=== PATIENT | female | born 1970 | race Caucasian/White ===

== ENCOUNTER 2018-07-08 08:02 | Inpatient (IN) | payer OTHER ==
[~2018-07-08] VITALS: Ht 165.1 cm; Wt 83.9 kg
[2018-07-08 08:00] VITALS: BP 112/52
[2018-07-08 08:24] LABS: Basophils # (auto) 0 uL; Basophils % (auto) 0.2 % (0.0-2.0); Eosinophils # (auto) 0.1 uL; Eosinophils % (auto) 0.4 % (0.0-7.0); Hemoglobin 10.5 g/dL (12.2-16.2); Lymphocytes # (auto) 1.8 uL; Lymphocytes % (auto) 8.6 % (10.0-50.0); Mean Corpuscular Hemoglobin 27.6 pg (28.0-32.0); Mean Corpuscular Hgb Conc. 31.6 g/dL (32.0-36.0); Mean Corpuscular Volume 87.2 fL (80.0-100.0); Monocytes # (auto) 0.9 uL; Monocytes % (auto) 4.1 % (0.0-12.0); Neutrophils # (auto) 18.3 uL; Neutrophils % (auto) 86.7 % (37.0-80.0); Platelet Count (auto) 312 10^3/uL (140-450); Red Blood Cells 3.79 10^6/uL (4.0-5.20); Red Cell Distribution Width 17.3 % (11.8-14.3); White Blood Cell 21.1 10^3/uL (4.4-10.8)
[2018-07-08 08:44] LABS: INR 1.01 (0.9-1.15); Prothrombin Time 10.8 sec (9.27-12.13)
[2018-07-08] MEDS ORDERED: AZITHROMYCIN 500MG/ 250ML 250 ML IV ONE (08:45)
[2018-07-08] MEDS ORDERED: cefTRIAXone 1GM/50ML D5W 50 ML IV ONE (08:45)
[2018-07-08 08:47] LABS: Albumin 2.7 g/dL (3.4-5.0); Anion Gap 8 (5-15); BUN/Creatinine Ratio 14.3; Blood Urea Nitrogen 15 mg/dL (7-18); Calcium 8.2 mg/dL (8.5-10.1); Carbon Dioxide 23 mmol/L (21-32); Chloride 103 mmol/L (98-107); GFR African American 72 mL/min; GFR Non-African American 59 mL/min; Glucose 94 mg/dL (74-106); Magnesium 2.4 mg/dL (1.6-2.6); Potassium 3.6 mmol/L (3.5-5.1); Sodium 134 mmol/L (136-145)
[2018-07-08 08:57] LABS: Alanine Aminotransferase 40 U/L (13-56); Alkaline Phosphatase 107 U/L (45-117); Aspartate Aminotransferase 83 U/L (15-37); Bilirubin, Total 0.4 mg/dL (0.2-1.0); Total Protein 7.1 g/dL (6.4-8.2)
[2018-07-08] MEDS ORDERED: ALBUTEROL SULF 2.5 MG/0.5ML(0.5%) NEB SOLN NEB ONE (09:00)
[2018-07-08] MEDS ORDERED: IPRATROPIUM BROM 0.5 MG/2.5ML INH SOL NEB ONE (09:00)
[2018-07-08] MEDS ORDERED: methylPREDNISolone SOD SUCC 125 MG/2 ML VL IV ONE (09:00)
[2018-07-08] MEDS ORDERED: IOHEXOL 350 MG/ML 100ML IJ ONE (09:40)
[2018-07-08 10:21] VITALS: BP 109/53
[2018-07-08] MEDS ORDERED: ACETAMINOPHEN 325 MG TAB PO ONE (10:45)
[2018-07-08] MEDS ORDERED: PIPERACILLIN-TAZOB 3.375GM 100 ML IV ONE ×2 (11:51→12:00)
[2018-07-08] MEDS ORDERED: NITROGLYCERIN 0.4 MG SL TAB SL PRN (12:00)
[2018-07-08] MEDS ORDERED: ALBUTEROL SULF 2.5 MG/0.5ML(0.5%) NEB SOLN NEB PRN (12:00)
[2018-07-08] MEDS ORDERED: OSELTAMIVIR 75 MG CAP PO ONE (12:00)
[2018-07-08] MEDS ORDERED: TEMAZEPAM 15 MG CAP PO PRN (12:00)
[2018-07-08] MEDS ORDERED: VANCOMYCIN 1GM/250ML 250 ML IV ONE ×2 (12:00→12:04)
[2018-07-08] MEDS ORDERED: ACYCLOVIR 5MG/KG Q8HR PER RX 0 ML IV SCH (12:00)
[2018-07-08] MEDS ORDERED: VANCOMYCIN PER PHARMACY 0 MG IV SCH (12:00)
[2018-07-08] MEDS ORDERED: MORPHINE SULFATE 4 MG/ML SYR/VIAL IV PRN (12:00)
[2018-07-08] MEDS ORDERED: LACTULOSE 20Gm/30ML SOLN PO PRN (12:00)
[2018-07-08] MEDS ORDERED: ACETAMINOPHEN 500 MG TAB PO PRN (12:00)
[2018-07-08] MEDS: SODIUM CHLORIDE 0.9% 1,000 ML IV SCH (12:17)
[2018-07-08] MEDS: IPRATROPIUM BROM 0.5 MG/2.5ML INH SOL NEB SCH ×3 (12:20→23:57)
[2018-07-08] MEDS: ALBUTEROL SULF 2.5 MG/0.5ML(0.5%) NEB SOLN NEB SCH ×3 (12:20→23:57)
[2018-07-08] MEDS: FLUCONAZOLE 200MG/100ML 100 ML IV SCH ×2 (13:28→14:48)
[2018-07-08] MEDS: methylPREDNISolone SOD SUCC 40 MG/ML VL IV SCH ×2 (13:28→18:40)
[2018-07-08 14:22] VITALS: BP 93/55
--- NOTE | 2018-07-08 14:30 | NUR ---
Respiratory note: OFF BIPAP AT THIS TIME TO 3 L NC. PATIENT TOLERATING NC WELL WITH NO ADVERSE EFFECTS. INFORMED MARTINE FLOOD OF CHANGES. HR 85 SPO2 94%, RR 18, B/S EXP WHEEZE, DIMINISHED IN THE BASES, WILL CONTINUE TO ASSESS PATIENT T/O DAY.
[2018-07-08 14:38] VITALS: BP 93/55
[2018-07-08] MEDS: D5W 5% IV SCH ×2 (15:45→23:30)
[2018-07-08] MEDS: ACYCLOVIR SOD IV SCH ×2 (15:45→23:30)
[2018-07-08] MEDS: HYDROcodone-ACET 5/325MG TAB PO PRN ×2 (17:09→23:25)
[2018-07-08] MEDS: PIPERACILLIN-TAZOB 3.375GM 100 ML IV SCH (18:40)
[2018-07-08] MEDS: MORPHINE SULFATE 4 MG/ML SYR/VIAL IV PRN ×3 (18:40→21:43)
[2018-07-08] MEDS: PROMETHAZINE HCL 25 MG/ML 1ML IV PRN (18:40)
[2018-07-08] MEDS: OSELTAMIVIR 75 MG CAP PO SCH (23:00)
[2018-07-08] MEDS ORDERED: ACYCLOVIR SODIUM (50 MG/ ML) 10 ML VIAL IV ONE (23:34)
[2018-07-08 23:35] VITALS: BP 98/63
[2018-07-09] MEDS: PIPERACILLIN-TAZOB 3.375GM 100 ML IV SCH ×4 (00:17→18:30)
[2018-07-09] MEDS: methylPREDNISolone SOD SUCC 40 MG/ML VL IV SCH ×4 (00:24→18:30)
[2018-07-09] MEDS ORDERED: QUEtiapine FUMARATE 100 MG TAB PO ONE (01:30)
[2018-07-09] MEDS: SODIUM CHLORIDE 0.9% 1,000 ML IV SCH ×2 (01:35→15:00)
[2018-07-09] MEDS: VANCOMYCIN 1GM/250ML 250 ML IV SCH ×2 (02:13→16:15)
[2018-07-09] MEDS: HYDROcodone-ACET 5/325MG TAB PO PRN ×2 (06:11→13:37)
[2018-07-09] MEDS: IPRATROPIUM BROM 0.5 MG/2.5ML INH SOL NEB SCH ×3 (06:49→17:50)
[2018-07-09] MEDS: ALBUTEROL SULF 2.5 MG/0.5ML(0.5%) NEB SOLN NEB SCH ×3 (06:49→17:50)
[2018-07-09 06:50] VITALS: BP 113/66
[2018-07-09] MEDS: ACYCLOVIR SOD IV SCH ×3 (07:00→23:02)
[2018-07-09] MEDS: D5W 5% IV SCH ×3 (07:00→23:02)
[2018-07-09 07:38] LABS: Basophils # (auto) 0 uL; Basophils % (auto) 0.1 % (0.0-2.0); Eosinophils # (auto) 0 uL; Hematocrit 29.7 % (36.0-46.0); Hemoglobin 9.3 g/dL (12.2-16.2); Lymphocytes # (auto) 0.5 uL; Lymphocytes % (auto) 2.3 % (10.0-50.0); Mean Corpuscular Hemoglobin 27.2 pg (28.0-32.0); Mean Corpuscular Hgb Conc. 31.5 g/dL (32.0-36.0); Mean Corpuscular Volume 86.5 fL (80.0-100.0); Monocytes # (auto) 0.4 uL; Neutrophils # (auto) 19.4 uL; Neutrophils % (auto) 95.6 % (37.0-80.0); Nucleated Red Blood Cells % 0.1 %; Platelet Count (auto) 323 10^3/uL (140-450); Red Blood Cells 3.43 10^6/uL (4.0-5.20); Red Cell Distribution Width 17.2 % (11.8-14.3); White Blood Cell 20.3 10^3/uL (4.4-10.8)
[2018-07-09] MEDS: AZITHROMYCIN 500MG/ 250ML 250 ML IV SCH (08:00)
[2018-07-09 08:08] LABS: Albumin 2.3 g/dL (3.4-5.0); Calcium 7.8 mg/dL (8.5-10.1); Potassium 3.2 mmol/L (3.5-5.1)
[2018-07-09 08:15] LABS: BUN/Creatinine Ratio 22.2; Bilirubin, Total 0.3 mg/dL (0.2-1.0); Total Protein 6.4 g/dL (6.4-8.2)
[2018-07-09] MEDS: FLUCONAZOLE 200MG/100ML 100 ML IV SCH ×2 (10:08→11:16)
[2018-07-09] MEDS: ENOXAPARIN SOD 40 MG/0.4 ML SYRINGE SC SCH (10:09)
[2018-07-09] MEDS: PANTOPRAZOLE 40 MG TAB PO SCH (10:09)
[2018-07-09] MEDS: OSELTAMIVIR 75 MG CAP PO SCH ×2 (10:09→22:04)
--- NOTE | 2018-07-09 11:42 | NUR ---
WOUND CARE NOTE: Wound care in to see patient per wound care request regarding wounds that are noted present on admission. [place] nurse took photograph of patient's wounds upon admission for reference. Patient is 47 y/o male with admitting diagnosis of Pneumonia, Sepsis. Patient is resting in ER bed #2. Patient is awake, alert and able to verbalize needs. Patient is in no stated pain at this time. She's able to assist in turning and repositioning. Her current Kashif score is 18. Noted patient's anterior abdomen has multi dry intact scabs and scars. There's one open full thickness wound to her L lower anterior abdomen measuring [id number]. Wound bed is red with granulation tissue, with yellow slough, pink lucian wound, minimal serous drainage, no odor noted. Patient states that she has had the abdominal wound since December "it just opened up, due to infection". Patient denies any abdominal surgery. Cleansed patient's Lt.lower abdominal wound with wound cleanser, patted dry with sterile gauze, applied Thera honey gel at wound base,packed wound cavity with NS moistened plain packing strips, covered wound with layers of folded sterile 4x4's gauze, and secured with paper tape. Patient turned to her L side, sacral, back and heels are examined, no other wound noted, no pressure injury related issue noted. Patient tolerated well. RECOMMENDATION: Daily/PRN dressing change to lower abdominal wound per MD order, dietary consult due to presence of wound, redistribute pressure points with pillows, continue monitoring by wound care while patient is hospitalized. Addendum: 07/09/18 at 1533 by Meggan Mcgregor RN Amended: Links added.
[2018-07-09] MEDS: LORazepam 0.5 MG TAB PO PRN (13:37)
[2018-07-09] MEDS: MORPHINE SULFATE 4 MG/ML SYR/VIAL IV PRN (20:38)
[2018-07-09] MEDS ORDERED: POTASSIUM CHL 20 Meq TABLET PO ONE (21:30)
[2018-07-09] MEDS ORDERED: QUEtiapine FUMARATE 100 MG TAB ONE ×2 (22:20→22:23)
[2018-07-09] MEDS ORDERED: QUEtiapine FUMARATE 25 MG TAB ONE (22:23)
[2018-07-09] MEDS: QUEtiapine FUMARATE 100 MG TAB PO SCH (23:02)
[2018-07-10 02:40] VITALS: BP 106/65
[2018-07-10] MEDS: SODIUM CHLORIDE 0.9% 1,000 ML IV SCH ×2 (03:56→17:20)
[2018-07-10 04:30] VITALS: BP 116/70
[2018-07-10] MEDS: MORPHINE SULFATE 4 MG/ML SYR/VIAL IV PRN ×4 (05:35→22:10)
[2018-07-10] MEDS: ALBUTEROL SULF 2.5 MG/0.5ML(0.5%) NEB SOLN NEB SCH ×4 (05:55→19:06)
[2018-07-10] MEDS: IPRATROPIUM BROM 0.5 MG/2.5ML INH SOL NEB SCH ×4 (05:55→19:06)
--- NOTE | 2018-07-10 05:55 | NUR ---
Respiratory note: PT TAKEN OFF BIPAP TO 8L OXYMIZER. HR 76, RR 26, POX 97%. BREATH SOUNDS EXPIRATORY WHEEZING, NO RESPIRATORY DISTRESS NOTED AT THIS TIME. MEDNEB TX GIVEN, TOLERATED WELL. PT IS RESTING COMFORTABLY IN BED. WILL CONTINUE TO MONITOR.
[2018-07-10] MEDS: VANCOMYCIN 1GM/250ML 250 ML IV SCH (06:19)
[2018-07-10] MEDS: PIPERACILLIN-TAZOB 3.375GM 100 ML IV SCH ×4 (06:19→17:36)
[2018-07-10] MEDS: methylPREDNISolone SOD SUCC 40 MG/ML VL IV SCH ×4 (06:19→17:36)
[2018-07-10] MEDS: ACYCLOVIR SOD IV SCH ×3 (07:06→23:13)
[2018-07-10] MEDS: D5W 5% IV SCH ×3 (07:06→23:13)
[2018-07-10 07:29] LABS: Basophils # (auto) 0 uL; Eosinophils # (auto) 0 uL; Hematocrit 29.9 % (36.0-46.0); Hemoglobin 9.5 g/dL (12.2-16.2); Lymphocytes # (auto) 0.8 uL; Lymphocytes % (auto) 4.3 % (10.0-50.0); Mean Corpuscular Hemoglobin 27.5 pg (28.0-32.0); Mean Corpuscular Hgb Conc. 31.7 g/dL (32.0-36.0); Mean Corpuscular Volume 86.8 fL (80.0-100.0); Monocytes # (auto) 0.2 uL; Monocytes % (auto) 1.3 % (0.0-12.0); Neutrophils # (auto) 16.5 uL; Neutrophils % (auto) 94.4 % (37.0-80.0); Nucleated Red Blood Cells % 0.1 %; Platelet Count (auto) 326 10^3/uL (140-450); Red Blood Cells 3.45 10^6/uL (4.0-5.20); Red Cell Distribution Width 17.2 % (11.8-14.3); White Blood Cell 17.5 10^3/uL (4.4-10.8)
[2018-07-10 07:43] LABS: Albumin 2.2 g/dL (3.4-5.0); BUN/Creatinine Ratio 19.6; Calcium 7.2 mg/dL (8.5-10.1); Potassium 3.4 mmol/L (3.5-5.1)
[2018-07-10 07:46] LABS: Bilirubin, Total 0.2 mg/dL (0.2-1.0); Total Protein 6.3 g/dL (6.4-8.2)
[2018-07-10] MEDS: AZITHROMYCIN 500MG/ 250ML 250 ML IV SCH (07:58)
[2018-07-10] MEDS: PANTOPRAZOLE 40 MG TAB PO SCH (09:35)
[2018-07-10] MEDS: ENOXAPARIN SOD 40 MG/0.4 ML SYRINGE SC SCH (09:35)
[2018-07-10] MEDS: OSELTAMIVIR 75 MG CAP PO SCH ×2 (09:35→22:10)
[2018-07-10] MEDS: FLUCONAZOLE 200MG/100ML 100 ML IV SCH ×2 (09:36→11:06)
[2018-07-10] MEDS: PROMETHAZINE HCL 25 MG/ML 1ML IV PRN ×2 (12:36→17:36)
--- NOTE | 2018-07-10 15:06 | NUR ---
BRANDING MACHINE OPERATOR DR. Lizandro MARINELLI
[2018-07-10] MEDS: HYDROcodone-ACET 5/325MG TAB PO PRN (20:13)
[2018-07-10] MEDS: QUEtiapine FUMARATE 100 MG TAB PO SCH (22:25)
[2018-07-10 22:38] VITALS: BP 136/75
--- NOTE | 2018-07-10 22:38 | NUR ---
Respiratory note: DISREGARD RESPIRATORY NEBULIZER CHARTING AT 2238. DOCUMENTED THE INCORRECT TIME.
[2018-07-11] MEDS: methylPREDNISolone SOD SUCC 40 MG/ML VL IV SCH ×4 (00:22→18:07)
[2018-07-11 00:34] VITALS: BP 136/75
[2018-07-11] MEDS: LORazepam 0.5 MG TAB PO PRN ×2 (00:36→18:59)
[2018-07-11] MEDS: MORPHINE SULFATE 4 MG/ML SYR/VIAL IV PRN ×3 (02:20→11:27)
--- NOTE | 2018-07-11 03:59 | NUR ---
PT TAKEN OFF BIPAP PER REQUEST. PT PLACED BACK ON OXYMIZER AT 6 LPM. HR 81 RR 20 POX 99%.
[2018-07-11] MEDS ORDERED: VANCOMYCIN 1GM/250ML 250 ML IV SCH (06:00)
[2018-07-11] MEDS: PIPERACILLIN-TAZOB 3.375GM 100 ML IV SCH ×4 (06:01→18:07)
[2018-07-11 06:31] LABS: Basophils # (auto) 0 uL; Eosinophils # (auto) 0 uL; Hematocrit 29.4 % (36.0-46.0); Hemoglobin 9.5 g/dL (12.2-16.2); Lymphocytes # (auto) 0.5 uL; Mean Corpuscular Hgb Conc. 32.3 g/dL (32.0-36.0); Mean Corpuscular Volume 86.8 fL (80.0-100.0); Monocytes # (auto) 0.4 uL; Monocytes % (auto) 2.7 % (0.0-12.0); Neutrophils # (auto) 15.1 uL; Neutrophils % (auto) 94.3 % (37.0-80.0); Nucleated Red Blood Cells % 0.2 %; Platelet Count (auto) 332 10^3/uL (140-450); Red Blood Cells 3.39 10^6/uL (4.0-5.20); Red Cell Distribution Width 16.9 % (11.8-14.3)
[2018-07-11 06:46] LABS: Albumin 2.3 g/dL (3.4-5.0); BUN/Creatinine Ratio 14.3; Calcium 7.3 mg/dL (8.5-10.1); Potassium 3.5 mmol/L (3.5-5.1)
[2018-07-11 06:49] LABS: Bilirubin, Total 0.2 mg/dL (0.2-1.0); Total Protein 6.3 g/dL (6.4-8.2)
[2018-07-11] MEDS: SODIUM CHLORIDE 0.9% 1,000 ML IV SCH (06:52)
[2018-07-11] MEDS: D5W 5% IV SCH ×2 (06:52→16:00)
[2018-07-11] MEDS: ACYCLOVIR SOD IV SCH ×2 (06:52→16:00)
[2018-07-11] MEDS: ALBUTEROL SULF 2.5 MG/0.5ML(0.5%) NEB SOLN NEB SCH ×3 (07:25→17:40)
[2018-07-11] MEDS: IPRATROPIUM BROM 0.5 MG/2.5ML INH SOL NEB SCH ×3 (07:25→17:40)
[2018-07-11] MEDS: AZITHROMYCIN 500MG/ 250ML 250 ML IV SCH (08:12)
[2018-07-11] MEDS: FLUCONAZOLE 200MG/100ML 100 ML IV SCH ×2 (10:30→11:55)
--- NOTE | 2018-07-11 10:51 | NUR ---
I spoke with [facility] Camera Systems Engineer Thu [phone], faxed her updated clinical information as requested-I spoke with ER nurse Yasmine-she is going to ask MD if patient is stable for transfer to [facility].
[2018-07-11] MEDS: PANTOPRAZOLE 40 MG TAB PO SCH (10:59)
[2018-07-11] MEDS: ENOXAPARIN SOD 40 MG/0.4 ML SYRINGE SC SCH (10:59)
[2018-07-11] MEDS: OSELTAMIVIR 75 MG CAP PO SCH (10:59)
--- NOTE | 2018-07-11 11:00 | NUR ---
CHAPERONED DR. MARINELLI INTO PTS ROOM
[2018-07-11] MEDS ORDERED: METHOCARBAMOL 500 MG TAB PO SCH (11:30)
[2018-07-11] MEDS ORDERED: GABAPENTIN 300 MG CAP PO ONE (11:30)
--- NOTE | 2018-07-11 11:40 | NUR ---
Transfer order faxed to [facility].
[2018-07-11] MEDS ORDERED: METHOCARBAMOL 500 MG TAB PO ONE (11:45)
--- NOTE | 2018-07-11 13:16 | NUR ---
I spoke with [facility] [employer] Machine Helper Thu, she is aware of the transfer order to [facility] and will work on a bed assignment.
[2018-07-11 18:54] VITALS: BP 144/74
[2018-07-11] MEDS: HYDROcodone-ACET 5/325MG TAB PO PRN (18:59)
== END 2018-07-11 18:59 | disposition short-term general hospital (02) | DRG 871 ==
LOC: EDBD 08:02 → ER 08:02 → TELE 11:56
PROVIDERS: ADMIT Internal Medicine; ATTEND Family Medicine
PROC: 5A09357 Assistance with Respiratory Ventilation, Less than 24 Consecutive Hours, Continuous Positive Airway Pressure (ICD-10-PCS; principal; 2018-07-08)
PROC: 5A09357 Assistance with Respiratory Ventilation, Less than 24 Consecutive Hours, Continuous Positive Airway Pressure (ICD-10-PCS; 2018-07-09)
PROC: 5A09357 Assistance with Respiratory Ventilation, Less than 24 Consecutive Hours, Continuous Positive Airway Pressure (ICD-10-PCS; 2018-07-10)
PROC: 5A09357 Assistance with Respiratory Ventilation, Less than 24 Consecutive Hours, Continuous Positive Airway Pressure (ICD-10-PCS; 2018-07-11)
DX: A41.9 Sepsis, unspecified organism (principal); R65.21 Severe sepsis with septic shock; J96.20 Acute and chronic respiratory failure, unspecified whether with hypoxia or hypercapnia; J18.1 Lobar pneumonia, unspecified organism; J10.00 Influenza due to other identified influenza virus with unspecified type of pneumonia; G93.41 Metabolic encephalopathy; J45.901 Unspecified asthma with (acute) exacerbation; M79.7 Fibromyalgia; G43.909 Migraine, unspecified, not intractable, without status migrainosus; F32.9 Major depressive disorder, single episode, unspecified; F41.9 Anxiety disorder, unspecified; M06.9 Rheumatoid arthritis, unspecified; B02.9 Zoster without complications; Z98.84 Bariatric surgery status; Z88.2 Allergy status to sulfonamides
CPT/HCPCS: 36415; 36600; 70450; 71045; 71260; 74177; 80053; 80061; 80202; 82140; 82805; 82962; 83605; 83735; 83880; 84484; 84702; 85025; 85610; 85730; 87040; 87077; 87186; 87205; 87804; 93005; 94640; 94660; 96365; 96367; 99291; G0378; J0696; J1450; J2543; J7060

== ENCOUNTER 2020-02-27 05:13 | Emergency (ER) | payer OTHER ==
[~2020-02-27] VITALS: Ht 165.1 cm; Wt 81.6 kg
[2020-02-27 06:26] LABS: Urine Bacteria NONE SEEN /hpf (None Seen); Urine Blood Negative /uL (Negative); Urine Hyaline Cast FEW /lpf (0 - 2); Urine Mucus FEW (None Seen); Urine Specific Gravity 1.012 (1.001-1.035); Urine WBC 3 /hpf (0 - 5)
[2020-02-27 06:52] LABS: Alcohol, Urine < 3.0 mg/dL (0-10); Amphetamine Screen, Urine NEGATIVE (NEGATIVE); Barbiturate Scree,Urine NEGATIVE (NEGATIVE); Benzodiazephine Screen, Urine NEGATIVE (NEGATIVE); Cannabinoid Screen, Urine NEGATIVE (NEGATIVE); Opiate Scree,Urine POSITIVE (NEGATIVE); Phencyclidine Screen, Urine NEGATIVE (NEGATIVE)
[2020-02-27 07:00] LABS: Cocaine Screen, Urine NEGATIVE (NEGATIVE)
[2020-02-27 08:04] LABS: Basophils # (auto) 0 10 ^3/uL (0-0.2); Basophils % (auto) 0.9 % (0.0-2.0); Eosinophils # (auto) 0.1 10 ^3/uL (0-0.8); Eosinophils % (auto) 3.5 % (0.0-7.0); Hematocrit 34.9 % (36.0-46.0); Hemoglobin 11.5 g/dL (12.2-16.2); Lymphocytes # (auto) 1.4 10 ^3/uL (0.4-5.4); Lymphocytes % (auto) 34.8 % (10.0-50.0); Mean Corpuscular Hemoglobin 32.2 pg (28.0-32.0); Mean Corpuscular Volume 97.5 fL (80.0-100.0); Monocytes # (auto) 0.4 10 ^3/uL (0-1.3); Monocytes % (auto) 10.3 % (0.0-12.0); Neutrophils # (auto) 2.1 10 ^3/uL (1.6-8.6); Neutrophils % (auto) 50.5 % (37.0-80.0); Platelet Count (auto) 169 10^3/uL (140-450); Red Blood Cells 3.58 10^6/uL (4.0-5.20); Red Cell Distribution Width 18.7 % (11.8-14.3); White Blood Cell 4.1 10^3/uL (4.4-10.8)
[2020-02-27 08:20] LABS: Acetaminophen 6.7 ug/mL (10-30)
[2020-02-27 08:21] LABS: Albumin 3.3 g/dL (3.4-5.0); Calcium 8.5 mg/dL (8.5-10.1)
[2020-02-27 08:25] LABS: BUN/Creatinine Ratio 21.5; Bilirubin, Total 0.3 mg/dL (0.2-1.0); Total Protein 6.1 g/dL (6.4-8.2)
[2020-02-27] MEDS ORDERED: SODIUM CHLORIDE 0.9% 500 ML IV ONE (12:45)
[2020-02-27 14:04] VITALS: BP 103/50
== END 2020-02-27 15:24 | disposition left against medical advice (07) ==
LOC: EDBD 05:13 → ER 05:13
DX: T40.2X1A Poisoning by other opioids, accidental (unintentional), initial encounter (principal); G93.41 Metabolic encephalopathy; E46 Unspecified protein-calorie malnutrition; Z88.2 Allergy status to sulfonamides; Z88.5 Allergy status to narcotic agent; Y92.89 Other specified places as the place of occurrence of the external cause
CPT/HCPCS: 36415; 70450; 80053; 80307; 80329; 81001; 82962; 85025; 96360; 99285; J7030

== ENCOUNTER 2022-08-08 17:01 | Emergency (ER) | payer OTHER ==
[~2022-08-08] VITALS: Ht 162.6 cm; Wt 73.0 kg
[2022-08-08] MEDS ORDERED: HYDROcodone-ACET 5/325MG TAB PO ONE (20:30)
[2022-08-08] MEDS ORDERED: MORPHINE SULFATE 4 MG/ML SYR/VIAL IV ONE (21:30)
[2022-08-08] MEDS ORDERED: SODIUM CHLORIDE 0.9% 1,000 ML IV ONE (21:30)
[2022-08-08] MEDS ORDERED: ONDANSETRON HCL 4 MG/2 ML VIAL IV ONE (21:30)
[2022-08-08 21:58] LABS: Basophils # (auto) 0.1 10 ^3/uL (0-0.2); Basophils % (auto) 0.4 % (0.0-2.0); Eosinophils # (auto) 0.1 10 ^3/uL (0-0.8); Eosinophils % (auto) 0.5 % (0.0-7.0); Hematocrit 32.1 % (36.0-46.0); Hemoglobin 10.5 g/dL (12.2-16.2); Lymphocytes # (auto) 2.6 10 ^3/uL (0.4-5.4); Lymphocytes % (auto) 14.5 % (10.0-50.0); Mean Corpuscular Hemoglobin 30.9 pg (28.0-32.0); Mean Corpuscular Hgb Conc. 32.8 g/dL (32.0-36.0); Mean Corpuscular Volume 94.2 fL (80.0-100.0); Monocytes # (auto) 0.8 10 ^3/uL (0-1.3); Monocytes % (auto) 4.4 % (0.0-12.0); Neutrophils # (auto) 14.2 10 ^3/uL (1.6-8.6); Neutrophils % (auto) 80.2 % (37.0-80.0); Red Blood Cells 3.41 10^6/uL (4.0-5.20); Red Cell Distribution Width 18.5 % (11.8-14.3); White Blood Cell 17.7 10^3/uL (4.4-10.8)
[2022-08-08 22:14] LABS: Albumin 2.7 g/dL (3.4-5.0); Calcium 8.1 mg/dL (8.5-10.1); INR 0.99 (0.9-1.15); Partial Thromboplastin Time 26.2 sec (24.6-33.4); Potassium 3.7 mmol/L (3.5-5.1)
[2022-08-08 22:18] LABS: BUN/Creatinine Ratio 18.3 (10.0-20.0); Bilirubin, Total 0.3 mg/dL (0.2-1.0); Total Protein 6.1 g/dL (6.4-8.2)
[2022-08-09 00:11] LABS: Urine Bacteria FEW /hpf (None Seen); Urine Blood Negative /uL (Negative); Urine Hyaline Cast FEW /lpf (0 - 2); Urine Specific Gravity 1.011 (1.001-1.035); Urine WBC 1 /hpf (0 - 5)
[2022-08-09] MEDS ORDERED: fentaNYL CITRATE 100 MCG/2 ML VL IV ONE ×3 (00:45→04:45)
[2022-08-09] MEDS ORDERED: cefTRIAXone 1GM/50ML D5W 50 ML IV ONE (02:15)
[2022-08-09] MEDS ORDERED: AZITHROMYCIN 500MG/ 250ML 250 ML IV ONE (02:15)
[2022-08-09 08:03] VITALS: BP 137/78
[2022-08-09] MEDS ORDERED: HYDROmorphone HCL 2 MG/ML VL/or syr IV ONE (09:00)
== END 2022-08-09 08:19 | disposition short-term general hospital (02) ==
LOC: EDBD 17:01 → ER 17:01
DX: S82.51XA Displaced fracture of medial malleolus of right tibia, initial encounter for closed fracture (principal); S82.491A Other fracture of shaft of right fibula, initial encounter for closed fracture; M19.90 Unspecified osteoarthritis, unspecified site; Z88.2 Allergy status to sulfonamides; Z88.8 Allergy status to other drugs, medicaments and biological substances; Z20.822 Contact with and (suspected) exposure to COVID-19; W01.0XXA Fall on same level from slipping, tripping and stumbling without subsequent striking against object, initial encounter; Y93.89 Activity, other specified; Y92.89 Other specified places as the place of occurrence of the external cause; Y99.8 Other external cause status
CPT/HCPCS: 29515; 36415; 71045; 73590; 80053; 81001; 83880; 85025; 85610; 85730; 87426; 87804; 93005; 96361; 96365; 96366; 96375; 96376; 99285; J0456; J0696; J1170; J2270; J2405; J3010; J7030

== ENCOUNTER 2023-04-19 11:30 | Inpatient (IN) | payer OTHER ==
[~2023-04-19] VITALS: Ht 157.5 cm; Wt 74.5 kg
[2023-04-19] MEDS ORDERED: cefTRIAXone 1GM/50ML D5W 50 ML IV ONE (12:00)
[2023-04-19] MEDS ORDERED: VANCOMYCIN 1GM/200ML 250 ML IV ONE (12:00)
[2023-04-19] MEDS ORDERED: SODIUM CHLORIDE 0.9% 1,000 ML IVB ONE (12:00)
[2023-04-19] MEDS ORDERED: SODIUM CHLORIDE 0.9% 1,000 ML IV ONE (12:00)
[2023-04-19] MEDS ORDERED: NOREPINEPHRINE 8 MG/250ML KIT 250 ML IV SCH (12:00)
[2023-04-19] MEDS ORDERED: NOREPINEPHRINE 8 MG/250ML KIT 250 ML IV ONE (12:00)
[2023-04-19 12:14] LABS: Basophils # (auto) 0.1 10 ^3/uL (0-0.2); Eosinophils # (auto) 0.2 10 ^3/uL (0-0.8); Hemoglobin 10.9 g/dL (12.2-16.2); Mean Corpuscular Volume 80.3 fL (80.0-100.0); Monocytes # (auto) 0.6 10 ^3/uL (0-1.3)
[2023-04-19 12:15] LABS: Basophils % (auto) 0.5 % (0.0-2.0); Hematocrit 35.9 % (36.0-46.0); Lymphocytes # (auto) 3.2 10 ^3/uL (0.4-5.4); Lymphocytes % (auto) 29.9 % (10.0-50.0); Mean Corpuscular Hemoglobin 24.3 pg (28.0-32.0); Mean Corpuscular Hgb Conc. 30.3 g/dL (32.0-36.0); Neutrophils # (auto) 6.5 10 ^3/uL (1.6-8.6); Neutrophils % (auto) 61.6 % (37.0-80.0); Red Blood Cells 4.47 10^6/uL (4.0-5.20); Red Cell Distribution Width 18.4 % (11.8-14.3); White Blood Cell 10.5 10^3/uL (4.4-10.8)
[2023-04-19 12:31] LABS: Alanine Aminotransferase 20 U/L (7-40); Albumin 4.2 g/dL (3.2-4.8); Alkaline Phosphatase 159 U/L (46-116); Anion Gap 9 (5-15); Aspartate Aminotransferase 32 U/L (13-40); BUN/Creatinine Ratio 12.3 (10.0-20.0); Bilirubin, Total 0.2 mg/dL (0.2-1.0); Blood Alcohol < 3.0 mg/dL (<10); Blood Urea Nitrogen 13 mg/dL (9-23); Calcium 9.3 mg/dL (8.5-10.1); Carbon Dioxide 24 mmol/L (20-30); Chloride 106 mmol/L (98-107); Glucose 121 mg/dL (74-106); Potassium 3.7 mmol/L (3.5-5.1); Sodium 139 mmol/L (136-145); Total Protein 6.6 g/dL (5.7-8.2)
[2023-04-19 12:34] LABS: Lipase 106 U/L (12-53)
[2023-04-19 12:45] VITALS: PULSE 54; RESP 12; O2SAT 100
[2023-04-19 12:49] LABS: Lactic Acid w/Reflex 2.8 mmol/L (0.4-2.0)
[2023-04-19] MEDS ORDERED: SODIUM CHLORIDE 0.9% 500 ML IV ONE (14:15)
[2023-04-19 15:00] LABS: Urine Bacteria FEW /hpf (None Seen); Urine Blood TRACE /uL (Negative); Urine Clarity Clear (Clear); Urine Color Colorless (Yellow); Urine Hyaline Cast FEW /lpf (0 - 2); Urine Mucus FEW (None Seen); Urine Protein, UAD 1+ (Negative); Urine Specific Gravity 1.014 (1.001-1.035); Urine Urobilinogen Normal (Negative); Urine WBC 1 /hpf (0 - 5)
[2023-04-19 15:06] LABS: Amphetamine Screen, Urine Neg (NEGATIVE); Barbiturate Scree,Urine Neg (NEGATIVE); Benzodiazephine Screen, Urine Neg (NEGATIVE)
[2023-04-19 15:07] LABS: Cannabinoid Screen, Urine Neg (NEGATIVE); Phencyclidine Screen, Urine Neg (NEGATIVE)
[2023-04-19 15:11] LABS: Cocaine Screen, Urine Neg (NEGATIVE)
[2023-04-19 15:20] VITALS: PULSE 53; RESP 14; O2SAT 98
[2023-04-19 15:51] LABS: Base Excess -3.6 mmol/L (-2.0-2.0)
[2023-04-19] MEDS ORDERED: NALOXONE HCL 1MG/ML 2ML SYRINGE IV ONE ×3 (16:00→17:45)
[2023-04-19] MEDS ORDERED: NITROGLYCERIN 0.4 MG SL TAB SL PRN (16:00)
[2023-04-19] MEDS ORDERED: VANCOMYCIN PER PHARMACY 0 MG IV SCH (16:00)
[2023-04-19] MEDS ORDERED: DEXTROSE (50%) 50ML SYRG IV PRN (16:00)
[2023-04-19] MEDS ORDERED: NALOXONE HCL 1MG/ML 2ML SYRINGE ONE (16:51)
[2023-04-19 17:46] VITALS: O2SAT 98
[2023-04-19] MEDS: ACCU-CHEK COMFORT CURVE STRIP VI SCH ×2 (18:19→23:00)
[2023-04-19 18:22] LABS: COVID19 ANTIGEN SOFIA FIA NEGATIVE (NEGATIVE)
[2023-04-19] MEDS: SODIUM CHLORIDE 0.9% 1,000 ML IV SCH (18:26)
[2023-04-19] MEDS: CEFEPIME 2GM/50ML NS 50 ML IV SCH (18:26)
[2023-04-19 18:43] LABS: Opiate Scree,Urine Pos (NEGATIVE)
[2023-04-19 19:20] VITALS: PULSE 72; RESP 18; O2SAT 98
[2023-04-19 19:24] VITALS: BP 124/48; PULSE 61; RESP 16; TEMP 97.9; O2SAT 98
[2023-04-19] MEDS: ONDANSETRON HCL 4 MG/2 ML VIAL IV PRN (19:51)
[2023-04-19 20:11] LABS: Potassium 4.2 mmol/L (3.5-5.1); Sodium 144 mmol/L (136-145)
[2023-04-19 20:12] LABS: Anion Gap 5 (5-15); Calcium 8.3 mg/dL (8.7-10.4); Carbon Dioxide 23 mmol/L (20-30); Chloride 116 mmol/L (98-107)
[2023-04-19 20:17] LABS: Glucose 157 mg/dL (74-106)
[2023-04-19 20:18] LABS: BUN/Creatinine Ratio 16.4 (10.0-20.0); Blood Urea Nitrogen 12 mg/dL (9-23)
[2023-04-19 20:22] LABS: INR 0.97 (0.9-1.15); Partial Thromboplastin Time 24.2 SEC (24.5-34.5); Prothrombin Time 10.2 sec (9.3-11.8)
[2023-04-20] VITALS (11 sets, daily range): BP systolic 107–136; BP diastolic 49–61; PULSE 59–78; RESP 17–22; TEMP 98.2–98.6; O2SAT 2–99
[2023-04-20] MEDS: SODIUM CHLORIDE 0.9% 1,000 ML IV SCH ×3 (00:15→13:10)
[2023-04-20 01:00] LABS: Chloride 115 mmol/L (98-107); Sodium 144 mmol/L (136-145)
[2023-04-20 01:01] LABS: Anion Gap 4 (5-15); Carbon Dioxide 25 mmol/L (20-30)
[2023-04-20 01:02] LABS: Calcium 8.5 mg/dL (8.7-10.4)
[2023-04-20 01:07] LABS: BUN/Creatinine Ratio 16.1 (10.0-20.0); Blood Urea Nitrogen 10 mg/dL (9-23); Glucose 137 mg/dL (74-106)
[2023-04-20] MEDS: VANCOMYCIN 1GM/200ML 250 ML IV SCH ×2 (02:28→16:02)
[2023-04-20] MEDS: ACCU-CHEK COMFORT CURVE STRIP VI SCH ×5 (02:41→22:58)
[2023-04-20] MEDS: IPRATROPIUM BROM 0.5 MG/2.5ML INH SOL NEB PRN (03:19)
[2023-04-20] MEDS: ALBUTEROL SULF 2.5 MG/0.5ML(0.5%) NEB SOLN NEB PRN (03:19)
[2023-04-20] MEDS: CEFEPIME 2GM/50ML NS 50 ML IV SCH ×3 (03:38→18:11)
[2023-04-20 06:22] LABS: Basophils # (auto) 0 10 ^3/uL (0-0.2); Eosinophils # (auto) 0 10 ^3/uL (0-0.8); Hemoglobin 9.5 g/dL (12.2-16.2); Lymphocytes # (auto) 1.6 10 ^3/uL (0.4-5.4); Monocytes # (auto) 0.6 10 ^3/uL (0-1.3); Nucleated Red Blood Cells % 0.1 %
[2023-04-20 06:24] LABS: Basophils % (auto) 0.3 % (0.0-2.0); Hematocrit 30.7 % (36.0-46.0); Lymphocytes % (auto) 15.5 % (10.0-50.0); Mean Corpuscular Hemoglobin 24.6 pg (28.0-32.0); Mean Corpuscular Hgb Conc. 31.1 g/dL (32.0-36.0); Mean Corpuscular Volume 79.2 fL (80.0-100.0); Monocytes % (auto) 5.6 % (0.0-12.0); Neutrophils # (auto) 8.1 10 ^3/uL (1.6-8.6); Neutrophils % (auto) 78.6 % (37.0-80.0); Red Blood Cells 3.87 10^6/uL (4.0-5.20); Red Cell Distribution Width 18.6 % (11.8-14.3); White Blood Cell 10.3 10^3/uL (4.4-10.8)
[2023-04-20 06:33] LABS: % Iron Saturation 4.5 % (15-50); Free T3 2.48 pg/mL (2.3-4.2); Free T4 (Free Thyroxine) 0.68 ng/dL (0.89-1.76)
[2023-04-20 06:35] LABS: Alanine Aminotransferase 13 U/L (7-40); Albumin 3.8 g/dL (3.2-4.8); Alkaline Phosphatase 142 U/L (46-116); Anion Gap 6 (5-15); Aspartate Aminotransferase 23 U/L (13-40); BUN/Creatinine Ratio 13.8 (10.0-20.0); Blood Urea Nitrogen 8 mg/dL (9-23); Calcium 8.7 mg/dL (8.5-10.1); Carbon Dioxide 25 mmol/L (20-30); Chloride 113 mmol/L (98-107); Glucose 111 mg/dL (74-106); Potassium 3.7 mmol/L (3.5-5.1); Sodium 144 mmol/L (136-145)
[2023-04-20 06:36] LABS: Bilirubin, Total 0.2 mg/dL (0.2-1.0)
[2023-04-20] MEDS ORDERED: ACCU-CHEK COMFORT CURVE STRIP VI SCH (08:30)
[2023-04-20] MEDS: PANTOPRAZOLE 40 MG/10 ML VIAL INJ IV SCH (09:17)
[2023-04-20] MEDS: ONDANSETRON HCL 4 MG/2 ML VIAL IV PRN (11:32)
[2023-04-20] MEDS ORDERED: ACCU-CHEK COMFORT CURVE STRIP VI PRN (12:00)
[2023-04-20] MEDS ORDERED: ACETAMINOPHEN 500 MG TAB PO ONE (12:45)
[2023-04-20] MEDS ORDERED: PRED1PAK7 PO (12:49)
[2023-04-20] MEDS ORDERED: BENZ100C97 PO (12:50)
[2023-04-20] MEDS ORDERED: PANT1INJ3 PO (12:50)
[2023-04-20] MEDS ORDERED: ESCI1TAB37 PO (12:50)
[2023-04-20] MEDS ORDERED: METH-1182 PO (12:50)
[2023-04-20 13:11] LABS: Chloride 111 mmol/L (98-107); Potassium 3.5 mmol/L (3.5-5.1); Sodium 144 mmol/L (136-145)
[2023-04-20 13:12] LABS: Anion Gap 6 (5-15); Carbon Dioxide 27 mmol/L (20-30)
[2023-04-20 13:13] LABS: Calcium 8.8 mg/dL (8.5-10.1)
[2023-04-20 13:17] LABS: Glucose 133 mg/dL (74-106)
[2023-04-20 13:18] LABS: BUN/Creatinine Ratio 11.3 (10.0-20.0); Blood Urea Nitrogen 7 mg/dL (9-23)
[2023-04-21] VITALS (9 sets, daily range): BP systolic 109–137; BP diastolic 61–77; PULSE 60–91; RESP 16–22; TEMP 36.7; O2SAT 95–99
[2023-04-21] MEDS: SODIUM CHLORIDE 0.9% 1,000 ML IV SCH ×4 (00:15→20:30)
[2023-04-21] MEDS: ACCU-CHEK COMFORT CURVE STRIP VI SCH ×6 (00:30→20:30)
[2023-04-21] MEDS: CEFEPIME 2GM/50ML NS 50 ML IV SCH (02:56)
[2023-04-21] MEDS: VANCOMYCIN 1GM/200ML 250 ML IV SCH ×3 (05:28→21:14)
[2023-04-21 07:00] LABS: Basophils # (auto) 0 10 ^3/uL (0-0.2); Eosinophils # (auto) 0 10 ^3/uL (0-0.8); Eosinophils % (auto) 0.4 % (0.0-7.0); Hemoglobin 8.6 g/dL (12.2-16.2); Lymphocytes # (auto) 1.5 10 ^3/uL (0.4-5.4); Mean Corpuscular Volume 80.1 fL (80.0-100.0); Neutrophils % (auto) 78.4 % (37.0-80.0); Red Cell Distribution Width 18.2 % (11.8-14.3)
[2023-04-21 07:02] LABS: Basophils % (auto) 0.2 % (0.0-2.0); Hematocrit 27.4 % (36.0-46.0); Lymphocytes % (auto) 14.5 % (10.0-50.0); Mean Corpuscular Hemoglobin 25.2 pg (28.0-32.0); Mean Corpuscular Hgb Conc. 31.4 g/dL (32.0-36.0); Monocytes # (auto) 0.7 10 ^3/uL (0-1.3); Monocytes % (auto) 6.5 % (0.0-12.0); Neutrophils # (auto) 8.1 10 ^3/uL (1.6-8.6); Red Blood Cells 3.42 10^6/uL (4.0-5.20); White Blood Cell 10.4 10^3/uL (4.4-10.8)
[2023-04-21 07:09] LABS: Alanine Aminotransferase 13 U/L (7-40); Albumin 3.7 g/dL (3.2-4.8); Alkaline Phosphatase 125 U/L (46-116); Aspartate Aminotransferase 22 U/L (13-40); Calcium 8.4 mg/dL (8.7-10.4); Carbon Dioxide 28 mmol/L (20-30); Chloride 108 mmol/L (98-107)
[2023-04-21 07:10] LABS: Anion Gap 6 (5-15); BUN/Creatinine Ratio 10.9 (10.0-20.0); Bilirubin, Total 0.2 mg/dL (0.2-1.0); Blood Urea Nitrogen < 5 mg/dL (9-23); Creatine Kinase IFCC 118 U/L (34-145); Glucose 96 mg/dL (74-106); Potassium 2.9 mmol/L (3.5-5.1); Sodium 142 mmol/L (136-145); Total Protein 5.7 g/dL (5.7-8.2)
[2023-04-21] MEDS: PANTOPRAZOLE 40 MG/10 ML VIAL INJ IV SCH (08:52)
[2023-04-21] MEDS ORDERED: MORPHINE SULFATE INJ 2 MG/ml SYRG IV PRN (10:30)
[2023-04-21] MEDS ORDERED: POTASSIUM CHLORIDE 60 MEQ, LIDOCAINE 1% (LOCAL ANESTH.) 6 ML in SODIUM CHL 0.9% 500 ML IV ONE (10:30)
[2023-04-21] MEDS ORDERED: SODIUM FERR GLUC 62.5MG/5ML 125 MG in SODIUM CHL 0.9% 100 ML IV ONE (10:30)
[2023-04-21] MEDS: MORPHINE SULFATE INJ 2 MG/ml SYRG IV PRN (10:32)
[2023-04-21] MEDS: metroNIDAZOLE 500MG/100ML 100 ML IV SCH ×3 (14:00→22:55)
[2023-04-21] MEDS: HYDROcodone-ACET 5/325MG TAB PO PRN ×2 (15:33→22:10)
[2023-04-21] MEDS ORDERED: RIZA10TA22 PO (16:33)
[2023-04-21] MEDS: IPRATROPIUM BROM 0.5 MG/2.5ML INH SOL NEB PRN (19:49)
[2023-04-21] MEDS: ALBUTEROL SULF 2.5 MG/0.5ML(0.5%) NEB SOLN NEB PRN (19:50)
[2023-04-21] MEDS: SUMAtriptan SUCCINATE 6 MG/0.5 ML VL SC PRN (20:31)
[2023-04-22] VITALS (8 sets, daily range): BP systolic 123–166; BP diastolic 78–84; PULSE 54–85; RESP 16–20; TEMP 97.6–98.6; O2SAT 93–99
[2023-04-22] MEDS: ACCU-CHEK COMFORT CURVE STRIP VI SCH ×6 (00:59→22:14)
[2023-04-22] MEDS: HYDROcodone-ACET 5/325MG TAB PO PRN ×2 (03:42→13:29)
[2023-04-22] MEDS ORDERED: GABA250S7 PO (05:06)
[2023-04-22] MEDS ORDERED: SUCR1SUS5 PO (05:06)
[2023-04-22] MEDS: metroNIDAZOLE 500MG/100ML 100 ML IV SCH ×3 (06:00→22:00)
[2023-04-22] MEDS: SODIUM CHLORIDE 0.9% 1,000 ML IV SCH ×3 (06:30→23:35)
[2023-04-22] MEDS: VANCOMYCIN 1GM/200ML 250 ML IV SCH ×3 (06:30→22:12)
[2023-04-22 07:19] LABS: Anion Gap 7 (5-15); Carbon Dioxide 29 mmol/L (20-30); Chloride 105 mmol/L (98-107); Potassium 2.9 mmol/L (3.5-5.1); Sodium 141 mmol/L (136-145)
[2023-04-22 07:20] LABS: Calcium 8.6 mg/dL (8.7-10.4)
[2023-04-22 07:25] LABS: Glucose 91 mg/dL (74-106)
[2023-04-22 07:30] LABS: BUN/Creatinine Ratio 10.9 (10.0-20.0); Basophils # (auto) 0 10 ^3/uL (0-0.2); Basophils % (auto) 0.6 % (0.0-2.0); Blood Urea Nitrogen < 5 mg/dL (9-23); Eosinophils # (auto) 0.1 10 ^3/uL (0-0.8); Hemoglobin 8.5 g/dL (12.2-16.2); Monocytes # (auto) 0.8 10 ^3/uL (0-1.3)
[2023-04-22 07:33] LABS: Eosinophils % (auto) 0.6 % (0.0-7.0); Hematocrit 26.9 % (36.0-46.0); Lymphocytes # (auto) 1.8 10 ^3/uL (0.4-5.4); Lymphocytes % (auto) 21.5 % (10.0-50.0); Mean Corpuscular Hemoglobin 24.9 pg (28.0-32.0); Mean Corpuscular Hgb Conc. 31.7 g/dL (32.0-36.0); Mean Corpuscular Volume 78.8 fL (80.0-100.0); Monocytes % (auto) 9.1 % (0.0-12.0); Neutrophils # (auto) 5.7 10 ^3/uL (1.6-8.6); Neutrophils % (auto) 68.2 % (37.0-80.0); Nucleated Red Blood Cells % 0.1 %; Red Blood Cells 3.41 10^6/uL (4.0-5.20); Red Cell Distribution Width 18.2 % (11.8-14.3); White Blood Cell 8.3 10^3/uL (4.4-10.8)
[2023-04-22] MEDS: GABAPENTIN 100 MG CAP PO SCH (07:41)
[2023-04-22] MEDS: PANTOPRAZOLE 40 MG/10 ML VIAL INJ IV SCH (09:55)
[2023-04-22] MEDS: levoFLOXacin 500MG 100 ML IV SCH (09:56)
[2023-04-22] MEDS ORDERED: DEXTROSE (50%) 50ML SYRG IV PRN (10:15)
[2023-04-22] MEDS ORDERED: POTASSIUM CHL 20 Meq TABLET PO ONE (10:15)
[2023-04-22] MEDS ORDERED: POTASSIUM CHLORIDE 40 MEQ, LIDOCAINE 1% (LOCAL ANESTH.) 4 ML in SODIUM CHL 0.9% 250 ML IV ONE (10:15)
[2023-04-22] MEDS: InsuLIN REG 1unit/0.01ml Soln (100units/ml) SC SCH ×3 (11:30→22:00)
[2023-04-22] MEDS: MORPHINE SULFATE INJ 2 MG/ml SYRG IV PRN (17:28)
[2023-04-22] MEDS ORDERED: GABAPENTIN 100 MG CAP PO SCH (22:00)
[2023-04-23] VITALS (7 sets, daily range): BP systolic 111–135; BP diastolic 61–81; PULSE 75–98; RESP 16–20; TEMP 98–98.4; O2SAT 93–99
[2023-04-23] MEDS: metroNIDAZOLE 500MG/100ML 100 ML IV SCH (05:05)
[2023-04-23] MEDS: VANCOMYCIN 1GM/200ML 250 ML IV SCH ×2 (05:48→06:48)
[2023-04-23] MEDS: MORPHINE SULFATE INJ 2 MG/ml SYRG IV PRN (05:48)
[2023-04-23] MEDS: GABAPENTIN 100 MG CAP PO SCH (06:17)
[2023-04-23] MEDS: InsuLIN REG 1unit/0.01ml Soln (100units/ml) SC SCH ×3 (07:00→17:00)
[2023-04-23] MEDS ORDERED: hydrALAZINE HCL 20 MG/ML VL IV PRN (07:30)
[2023-04-23] MEDS: ACCU-CHEK COMFORT CURVE STRIP VI SCH ×3 (07:58→17:00)
[2023-04-23] MEDS ORDERED: PANTOPRAZOLE 40 MG TAB PO SCH (10:00)
[2023-04-23] MEDS: levoFLOXacin 500MG 100 ML IV SCH (10:06)
[2023-04-23] MEDS: SUMAtriptan SUCCINATE 6 MG/0.5 ML VL SC PRN (10:30)
[2023-04-23 11:27] LABS: Chloride 107 mmol/L (98-107); Potassium 3.2 mmol/L (3.5-5.1); Sodium 144 mmol/L (136-145)
[2023-04-23 11:28] LABS: Anion Gap 5 (5-15); Carbon Dioxide 32 mmol/L (20-30)
[2023-04-23 11:29] LABS: Calcium 9.4 mg/dL (8.5-10.1)
[2023-04-23 11:33] LABS: Glucose 96 mg/dL (74-106)
[2023-04-23 11:34] LABS: Blood Urea Nitrogen 6 mg/dL (9-23)
[2023-04-23] MEDS ORDERED: POTASSIUM CHL 20 Meq TABLET PO ONE ×2 (12:45→13:21)
[2023-04-23] MEDS ORDERED: metroNIDAZOLE 500 MG TAB PO SCH (14:00)
[2023-04-23] MEDS: HYDROcodone-ACET 5/325MG TAB PO PRN (14:15)
[2023-04-23] MEDS ORDERED: MET500T PO (15:15)
[2023-04-23] MEDS ORDERED: LEVO500T91 PO (15:15)
[2023-04-23] MEDS ORDERED: VANCOMYCIN 1GM/200ML 250 ML IV SCH (22:00)
[2023-04-24 11:06] LABS: Vitamin B1, Whole Blood 119.4 nmol/L (66.5-200.0)
== END 2023-04-23 17:00 | disposition home or self-care (01) | DRG 871 ==
LOC: EDBD 11:30 → ER 11:30 → TELE 16:13 → TELE-CENTR 04-20 11:07
PROVIDERS: ADMIT Nurse Practitioner Family; ATTEND Internal Medicine
DX: A41.9 Sepsis, unspecified organism (principal); G92.8 Other toxic encephalopathy; J96.01 Acute respiratory failure with hypoxia; J96.02 Acute respiratory failure with hypercapnia; N17.0 Acute kidney failure with tubular necrosis; E87.29 Other acidosis; G40.209 Localization-related (focal) (partial) symptomatic epilepsy and epileptic syndromes with complex partial seizures, not intractable, without status epilepticus; R65.20 Severe sepsis without septic shock; D50.9 Iron deficiency anemia, unspecified; G89.4 Chronic pain syndrome; I12.9 Hypertensive chronic kidney disease with stage 1 through stage 4 chronic kidney disease, or unspecified chronic kidney disease; Z20.822 Contact with and (suspected) exposure to COVID-19; M19.90 Unspecified osteoarthritis, unspecified site; E87.6 Hypokalemia; F31.9 Bipolar disorder, unspecified; F17.200 Nicotine dependence, unspecified, uncomplicated; G43.909 Migraine, unspecified, not intractable, without status migrainosus; K52.9 Noninfective gastroenteritis and colitis, unspecified; N18.9 Chronic kidney disease, unspecified; Z88.2 Allergy status to sulfonamides; Z88.8 Allergy status to other drugs, medicaments and biological substances; Z83.3 Family history of diabetes mellitus; Z98.84 Bariatric surgery status
CPT/HCPCS: 36415; 36600; 70450; 70551; 71045; 74176; 80048; 80053; 80202; 80307; 80320; 81001; 82140; 82550; 82805; 82962; 83540; 83550; 83605; 83690; 83735; 84425; 84439; 84443; 84481; 84484; 85025; 85048; 85610; 85730; 86850; 86900; 86901; 87040; 87045; 87086; 87177; 87426; 87427; 87493; 93005; 93306; 94640; 95819; 96361; 96365; 96368; 97110; 97116; 97163; 99291; C9113; G0378; J0692; J0696; J1956; J2001; J2405; J3490

== ENCOUNTER 2023-05-18 20:46 | Emergency (ER) | payer OTHER ==
[~2023-05-18] VITALS: Ht 165.1 cm; Wt 77.3 kg
[~2023-05-18 20:46] MED LIST: BENZ100C97 PO; ESCI1TAB37 PO; GABA250S7 PO; LEVO500T91 PO; MET500T PO; METH-1182 PO; PANT1INJ3 PO; PRED1PAK7 PO; RIZA10TA22 PO; SUCR1SUS5 PO
[2023-05-18] MEDS ORDERED: MORPHINE SULFATE 4 MG/ML SYR/VIAL IV ONE (22:00)
[2023-05-18] MEDS ORDERED: ONDANSETRON HCL 4 MG/2 ML VIAL IV ONE (22:00)
[2023-05-18 23:08] LABS: Alkaline Phosphatase 172 U/L (46-116); Anion Gap 2 (5-15); Aspartate Aminotransferase 15 U/L (13-40); BUN/Creatinine Ratio 13.5 (10.0-20.0); Bilirubin, Total < 0.2 mg/dL (0.2-1.0); Blood Urea Nitrogen 13 mg/dL (9-23); Calcium 8.7 mg/dL (8.7-10.4); Carbon Dioxide 29 mmol/L (20-30); Chloride 108 mmol/L (98-107); Glucose 93 mg/dL (74-106); Lipase 43 U/L (12-53); Potassium 3.9 mmol/L (3.5-5.1); Sodium 139 mmol/L (136-145); Total Protein 6.5 g/dL (5.7-8.2)
[2023-05-18 23:20] LABS: Alanine Aminotransferase < 9 U/L (7-40)
[2023-05-18 23:55] LABS: Basophils # (auto) 0 10 ^3/uL (0-0.2); Hemoglobin 10.2 g/dL (12.2-16.2); Neutrophils # (auto) 2.2 10 ^3/uL (1.6-8.6); Nucleated Red Blood Cells % 0.1 %; Red Blood Cells 3.81 10^6/uL (4.0-5.20)
[2023-05-18 23:57] LABS: Basophils % (auto) 0.6 % (0.0-2.0); Eosinophils # (auto) 0.2 10 ^3/uL (0-0.8); Eosinophils % (auto) 2.7 % (0.0-7.0); Lymphocytes # (auto) 3.4 10 ^3/uL (0.4-5.4); Lymphocytes % (auto) 54.7 % (10.0-50.0); Mean Corpuscular Hemoglobin 26.9 pg (28.0-32.0); Mean Corpuscular Hgb Conc. 31.1 g/dL (32.0-36.0); Mean Corpuscular Volume 86.5 fL (80.0-100.0); Monocytes # (auto) 0.5 10 ^3/uL (0-1.3); Monocytes % (auto) 7.5 % (0.0-12.0); Neutrophils % (auto) 34.5 % (37.0-80.0); White Blood Cell 6.3 10^3/uL (4.4-10.8)
[2023-05-18 23:58] LABS: Red Cell Distribution Width 23.4 % (11.8-14.3)
[2023-05-19] MEDS ORDERED: MAALOX PLUS or MAALOX 30 ML PO ONE
[2023-05-19] MEDS ORDERED: ONDANSETRON ODT 4 MG TAB PO ONE
[2023-05-19] MEDS ORDERED: LIDOCAINE VISCOUS 2% 15ML UD MT ONE
[2023-05-19] MEDS ORDERED: MORPHINE SULFATE 4 MG/ML SYR/VIAL IM ONE
[2023-05-19] MEDS ORDERED: DICY10CA PO (00:17)
[2023-05-19 00:23] VITALS: TEMP 98.2; O2SAT 98
[2023-05-19 00:31] VITALS: BP 119/46; PULSE 78; RESP 17
== END 2023-05-19 00:37 | disposition home or self-care (01) ==
LOC: ER 20:46 → EDBD 20:46 → EDUNIT# 20:46 → ER 05-19 00:37
DX: K29.00 Acute gastritis without bleeding (principal); M19.90 Unspecified osteoarthritis, unspecified site; N18.9 Chronic kidney disease, unspecified; I95.9 Hypotension, unspecified; Z88.8 Allergy status to other drugs, medicaments and biological substances; Z79.899 Other long term (current) drug therapy
CPT/HCPCS: 36415; 76705; 80053; 83690; 85025; 93005; 96372; 99285; J2270; Q0162

== ENCOUNTER 2024-10-22 11:08 | Inpatient (IN) | payer OTHER ==
[~2024-10-22] VITALS: Ht 154.9 cm; Wt 66.1 kg
[~2024-10-22 11:08] MED LIST changes: +DICY10CA PO
[2024-10-22] MEDS: SODIUM CHLORIDE 0.9% 1,000 ML IV ONE (11:15)
--- NOTE | 2024-10-22 11:16 | ED.PDOC ---
Altered Mental Status HPI Comments 53 y.o female with PMHx of a CVA and hypoglycemia, presents to the ED via EMS for an evaluation of a near syncopal episode today at a diner restaurant. EMS reports patient was eating breakfast, per bystanders witnessed patient become faint and called 911. On scene, patient was hypotensive in the 60-70's systolic, was given 300mL NS IV and push dose epi but pressure remained in the 70's systolic. Patient denies any chest pain, SOB, nausea, vomiting, headaches, fever, chills, or recent illness. Patient is on home oxygen at night but denies any respiratory illnesses. Time Seen by MD: 11:05 Primary Care Provider: CONNORO Reviewed Notes: Nurses Notes, Air Press Operator Notes, Medications, Allergies Allergies: Coded Allergies: Metronidazole (Verified Allergy, Mild, 04/22/23) Ceftriaxone (Verified Allergy, Unknown, 04/20/23) NSAIDs (Verified Allergy, Unknown, 04/19/23) Sulfa Antibiotics (Verified Allergy, Unknown, 04/19/23) Home Meds Active Scripts Dicyclomine Hcl (BENTYL CAPSULE) 10 Mg Cp, 1 CAP PO TID PRN, #30 CAP 11 Refills Prov:CHRIS BROWNING 05/19/23 Metronidazole (Metronidazole) 500 Mg Tab, 500 MG PO TID for 5 Days, #15 TAB Prov:DIPTI BILLY MD 04/23/23 Levofloxacin Hemihydrate (LEVAQUIN 500 MG) 500 Mg Tab, 500 MG PO DAILY for 5 Days, #5 TAB Prov:DIPTI BILLY MD 04/23/23 Reported Medications Sucralfate (Carafate) 1 Gm/10 Ml Opal, 1 GM PO QID, ML 04/22/23 Gabapentin (GABAPENTIN) 250 Mg/5 Ml Harriet, 300 MG PO TID, ML 04/22/23 Rizatriptan Benzoate (RIZATRIPTAN BENZOATE) 10 Mg Tab, 10 MG PO PRN for FOR HEADACHE 04/21/23 Escitalopram Oxalate (ESCITALOPRAM OXALATE) 20 Mg Tab, 1 TAB PO DAILY, #30 TAB 5 Refills 04/20/23 Methocarbamol (Methocarbamol) 750 Mg Tab, 750 MG PO for 30 Days, MG 04/20/23 Pantoprazole Sodium (PANTOPRAZOLE SODIUM) 40 Mg Inj, 40 MG PO, INJ 04/20/23 Benzonatate (Benzonatate) 100 Mg Cap, 100 MG PO, CAP 04/20/23 Prednisone (Prednisone) 5 Mg Bang, 5 MG PO, PACK 04/20/23 Information Source: Patient, Emergency Med Personnel Mode of Arrival: EMS Severity: Moderate Timing: Hours Duration: Since onset Prehospital treatment: 12 Lead EKG, Process Description Writer, IVF, Treatment (push dose epi ) Recent: None History of: Hypoglycemia Associated Signs and Symptoms: Other Past Medical History PAST MEDICAL HISTORY: Arthritis, CKF, CVA, Hypotension Surgical History: Appendectomy, Hysterectomy, 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 History: Unknown, Unobtainable, Pt Confused Family History Family History: Unknown, Unobtainable, Pt Confused Social History Smoker: Non-Smoker Alcohol: Denies ETOH Use Drugs: Other Lives In: Home Constitutional: denies: chills, diaphoresis, fatigue, fever, malaise, sweats, weakness, others EENTM: denies: blurred vision, double vision, ear bleeding, ear discharge, ear drainage, ear pain, ear ringing, eye pain, eye redness, hearing loss, mouth pain, mouth swelling, nasal discharge, nose bleeding, nose congestion, nose pain, photophobia, tearing, throat pain, throat swelling, voice changes, others Respiratory: denies: cough, hemoptysis, orthopnea, SOB at rest, shortness of breath, SOB with excertion, stridor, wheezing, others Cardiovascular: denies: chest pain, dizzy spells, diaphoresis, Dyspnea on exertion, edema, irregular heart beat, left arm pain, lightheadedness, palpitations, PND, syncope, others Gastrointestinal: denies: abdomen distended, abdominal pain, blood streaked bowels, constipated, diarrhea, dysphagia, difficulty swallowing, hematemesis, melena, nausea, poor appetite, poor fluid intake, rectal bleeding, rectal pain, vomiting, others Genitourinary: denies: abnormal vagina bleeding, burning, dyspareunia, dysuria, flank pain, frequency, hematuria, incontinence, pain, , vagina discharge, urgency, others Neurological: reports: dizziness, fainting; denies: headache, left sided numbness, left sided weakness, numbness, paresthesia, pre-existing deficit, right sided numbness, right sided weakness, seizure, speech problems, tingling, tremors, weakness, others Musculoskeletal: denies: back pain, gout, joint pain, joint swelling, muscle pain, muscle stiffness, neck pain, others Integumetry: denies: bruises, change in color, change in hair/nails, dryness, laceration, lesions, lumps, rash, wounds, others Allergic/Immunocompromised: denies: Difficulty Healing, Frequent Infections, Hives, Itching, others Hematologic/Lymphatic: denies: anemia, blood clots, easy bleeding, easy bruising, swollen glands, others Endocrine: denies: excessive hunger, excessive sweating, excessive thirst, excessive urination, flushing, intolerance to cold, intolerance to heat, unexplained weight gain, unexplained weight loss, others Psychiatric: denies: anxiety, bipolar disorder, depression, hopeless, panic disorder, schizophrenia, sleepless, suicidal, others All Other Systems: Reviewed and Negative Physical Exam General Appearance: Moderate Distress, Obese HEENT: Normal ENT Inspection, Pharynx Normal, TMs Normal Neck: Full Range of Motion, Non-Tender, Normal, Normal Inspection Respiratory: Chest Non-Tender, Lungs Clear, No Accessory Muscle Use, No Respiratory Distress, Normal Breath Sounds Cardiovascular: No Edema, No JVD, No Murmur, No Gallop, Normal Peripheral Pulses, Regular Rate/Rhythm Breast Exam: Deferred Gastrointestinal: No Organomegaly, Non Tender, No Pulsatile Mass, Normal Bowel Sounds, Soft Genitalia: Deferred Pelvic: Deferred Rectal: Deferred Extremities: No calf tenderness, Normal capillary refill, No pedal edema Musculoskeletal : Apperance: Normal Neurologic: Alert, wafer cutter II-XII nml as Tested, Motor Weakness, Normal Affect, Normal Mood, No Sensory Deficits Cerebellar Function: Normal Reflexes: Normal Skin: Dry, Pallor, Warm Lymphatic: No Adenopathy EKG EKG : Pulse Rate (adult): 60 Cardiac Rhythm: NSR Was a procedure done? Was a procedure done?: No Differential Diagnosis (ALOC) Differential Diagnosis: Dehydration, Hypoglycemia, Hypoxemia, Seizure, Closed Head Injury, CVA X-Ray, Labs, Meds, VS Vital Signs Date Time Temp Pulse Resp B/P (MAP) Pulse Ox O2 Delivery O2 Flow Rate FiO2 10/22/24 13:05 59 12 99 Nasal Cannula* 2 28 10/22/24 13:04 60 10/22/24 13:00 61 13 91/46 (61) 100 10/22/24 11:36 60 10/22/24 11:27 97.1 62 15 68/32 (44) 97 97.1 10/22/24 11:15 97.8 71 22 71/31 (44) 97 97.8 Lab Test 10/22/24 13:02 10/22/24 11:34 Range/Units Troponin I High Sensitivity < 3 L < 3 L </=34 ng/L White Blood Count 5.9 4.4-10.8 10^3/uL Red Blood Count 3.14 L 4.0-5.20 10^6/uL Hemoglobin 9.7 L 12.2-16.2 g/dL Hematocrit 29.3 L 36.0-46.0 % Mean Corpuscular Volume 93.3 80.0-100.0 fL Mean Corpuscular Hemoglobin 30.8 28.0-32.0 pg Mean Corpuscular Hemoglobin Concent 33.0 32.0-36.0 g/dL Red Cell Distribution Width 16.5 H 11.8-14.3 % Platelet Count 166 140-450 10^3/uL Mean Platelet Volume 7.6 6.9-10.8 fL Neutrophils (%) (Auto) 41.1 37.0-80.0 % Lymphocytes (%) (Auto) 43.5 10.0-50.0 % Monocytes (%) (Auto) 10.3 0.0-12.0 % Eosinophils (%) (Auto) 4.6 0.0-7.0 % Basophils (%) (Auto) 0.5 0.0-2.0 % Neutrophils # (Auto) 2.4 1.6-8.6 10 ^3/uL Lymphocytes # (Auto) 2.6 0.4-5.4 10 ^3/uL Monocytes # (Auto) 0.6 0-1.3 10 ^3/uL Eosinophils # (Auto) 0.3 0-0.8 10 ^3/uL Basophils # (Auto) 0 0-0.2 10 ^3/uL Nucleated Red Blood Cells 0.0 % Sodium Level 143 136-145 mmol/L Potassium Level 3.5 3.5-5.1 mmol/L Chloride Level 111 H 98-107 mmol/L Carbon Dioxide Level 24 20-31 mmol/L Anion Gap 8 5-15 Blood Urea Nitrogen 25 H 9-23 mg/dL Creatinine 1.42 H 0.550-1.02 mg/dL Glomerular Filtration Rate Calc 44 >90 mL/min BUN/Creatinine Ratio 17.6 10.0-20.0 Serum Glucose 83 74-106 mg/dL Lactic Acid Level 1.2 0.4-2.0 mmol/L Calcium Level 8.6 L 8.7-10.4 mg/dL The patient's CBC shows anemia with a hemoglobin of 9.7 and hematocrit 29.3 The chemistry panel shows a BUN of 25 and a creatinine of 1.42 The rest of the chemistry panel is within normal limits The troponin level is negative We did start the patient on normal saline per sepsis protocol and the patient's blood pressure has come up to 91/46 At this time the patient's chest x-ray shows: IMPRESSION: Interstitial and alveolar type opacities of bilateral lungs may represent multifocal pneumonia with underlying fibrotic changes/pulmonary edema not excluded. Recommend clinical correlation. At this time the patient is started on vancomycin as well as Levaquin The patient will be admitted to our hospital after we did call [facility] and get authorization for the admission We spoke with Dr. Jean and she agrees with the patient's unstable for transfer and has given authorization for admission to our facility The authorization #[id number] Images Reviewed?: Images reviewed and evaluated by me Time of 1ST Reevaluation: 12:00 Reevaluation 1ST: Unchanged Patient Education/Counseling: Diagnosis, Treatment, Prognosis Family Education/Counseling: No Family Present Sepsis Sepsis Reasesment Focused Exam Orders: Laboratory Tests 10/22/24 11:34: Lactic Acid Level 1.2 Departure 1 Departure Time of Disposition: 14:21 Impression: Primary Impression: Bilateral pneumonia Qualified Codes: J18.9 - Pneumonia, unspecified organism Additional Impressions: Sepsis Qualified Codes: A41.9 - Sepsis, unspecified organism; R65.20 - Severe sepsis without septic shock Hypotension Qualified Codes: I95.9 - Hypotension, unspecified Disposition: ADMITTED INPATIENT Condition: Fair Critical Care Note Critical Care Time?: Yes (45 min-critical care time only) Stability Stability form required: Yes Unstable for transfer: Telemetry monitoring (Telemetry monitoring required), ED Physician Assesment (Clinical assesment) Heart Score Heart Score: Heart Score Response (Comments) Value History N/A 0 EKG N/A 0 Age N/A 0 Risk Factors N/A 0 Troponin N/A 0 Total 0 I personally scribed for SISSY OATES MD ([email or web address]) on 10/22/24 at 11:15. Electronically submitted by Lina Ziegler ([facility]). I personally scribed for SISSY OATES MD ([email or web address]) on 10/22/24 at 13:04. Electronically submitted by Lina Ziegler ([facility]). SISSY OATES MD Oct 22, 2024 11:15
--- NOTE | 2024-10-22 11:38 | ECG ---
[facility] Test Date: 2024-10-22 Test Time: 11:36:47 Pat Name: EYAL ARTIS Department: ED Room: [address] [place] [address] Gender: F Web Site Manager: NIKI : 1970 Requested By: SISSY OATES Order Number: [id number] Reading MD: James Hurd Measurements Intervals [place] Rate: 60 P: 25 VA: 162 QRS: 36 QRSD: 98 T: 38 QT: 497 QTc: 497 Interpretive Statements Sinus rhythm Borderline prolonged QT interval Electronically Signed On 10-22-2024 17:33:36 PDT by James Hurd Please click the below link to view image of tracing.
[2024-10-22 11:45] LABS: Basophils # (auto) 0 10 ^3/uL (0-0.2); Basophils % (auto) 0.5 % (0.0-2.0); Eosinophils # (auto) 0.3 10 ^3/uL (0-0.8); Eosinophils % (auto) 4.6 % (0.0-7.0); Hematocrit 29.3 % (36.0-46.0); Hemoglobin 9.7 g/dL (12.2-16.2); Lymphocytes # (auto) 2.6 10 ^3/uL (0.4-5.4); Lymphocytes % (auto) 43.5 % (10.0-50.0); Mean Corpuscular Hemoglobin 30.8 pg (28.0-32.0); Mean Corpuscular Volume 93.3 fL (80.0-100.0); Monocytes # (auto) 0.6 10 ^3/uL (0-1.3); Monocytes % (auto) 10.3 % (0.0-12.0); Neutrophils # (auto) 2.4 10 ^3/uL (1.6-8.6); Neutrophils % (auto) 41.1 % (37.0-80.0); Platelet Count (auto) 166 10^3/uL (140-450); Red Blood Cells 3.14 10^6/uL (4.0-5.20); Red Cell Distribution Width 16.5 % (11.8-14.3); White Blood Cell 5.9 10^3/uL (4.4-10.8)
[2024-10-22 11:52] LABS: Sodium 143 mmol/L (136-145)
[2024-10-22 11:54] LABS: Anion Gap 8 (5-15); Carbon Dioxide 24 mmol/L (20-31); Chloride 111 mmol/L (98-107); Potassium 3.5 mmol/L (3.5-5.1)
[2024-10-22 11:55] LABS: Calcium 8.6 mg/dL (8.7-10.4)
[2024-10-22 11:59] LABS: BUN/Creatinine Ratio 17.6 (10.0-20.0); Blood Urea Nitrogen 25 mg/dL (9-23); Glucose 83 mg/dL (74-106)
[2024-10-22 13:05] VITALS: PULSE 59; RESP 12; O2SAT 99
--- NOTE | 2024-10-22 13:08 | DVH ---
CHEST RADIOGRAPH Indication: weakness Technique: Single frontal view of the chest was obtained Comparison: XY CHEST PORTABLE on DOS: 04/21/23, XY CHEST PORTABLE on DOS: 04/19/23, XY CHEST XRAY 1 V IEW on DOS: 08/09/22 FINDINGS: Lines and Tubes: None Lungs: Interstitial and alveolar type opacities of bilateral lungs. Pleura: No effusion. No pneumothorax. Cardiomediastinal contours: Borderline cardiomegaly Bones: No acute osseous abnormality. IMPRESSION: Interstitial and alveolar type opacities of bilateral lungs may represent multifocal pneumonia with u nderlying fibrotic changes/pulmonary edema not excluded. Recommend clinical correlation.
[2024-10-22] MEDS: levoFLOXacin 500MG 100 ML IV ONE (14:30)
--- NOTE | 2024-10-22 14:57 | DVHHP2 ---
History of Present Illness Reason for Visit: Syncope History of Present Illness 53-year-old female past medical history CVA hyper glycemia arthritis CK F hypotension surgical history appendectomy tubal ligation hysterectomy wear oxygen at night per chief complaint per has been patient had went out with his family member this morning after eating breakfast patient has a syncopal episode witnessed by her. Bystanders so 911 was called. When EMS arrived they found the patient systolic bp 60-70 saline 200 mL was provided along with epi and pressure systolic only went up to 70's patient arrived to the ER so patient was given additional bolus and blood pressure 91/46 push currently improved on my exam. Had a similar episode about a year ago they did a full workup they could not find anything wrong. Per he do not know exactly what happened but 911 was called patient is lying in bed lethargic on my exam arousable by painful stimuli. When evaluating patient's labs and imaging from ED creatinine was 1.2 hemoglobin was 9.7 29.3 troponin was negative x2 chest x- ray shows multifocal pneumonia fibrotic changes lactate was 1.2 patient was given vanco and Levaquin in the ER also normal saline patient currently is on Lexapro gabapentin Robaxin which I will hold those medications since she is encephalopathy we will order occult blood blood cultures x2 sputum vanco we will be provided along with Zosyn alcohol level urine drug screen Lovenox. If Patient is still with altered mental status we will need to consider Neurology consult. We will admit to tele for further workup and care. Patient was given authorization for admission Past Medical History See HPI above Past Surgical History See HPI above Family History Reviewed, non-contributory to the management of this case. Past Social History denies drinking smoking or drug use and currently lives with him and she is not working Review of Systems Review of Systems Limited ROS due to mental status Neurological: Confusion (And syncopal episode today Witness by bystanders) Allergies: Coded Allergies: Metronidazole (Verified Allergy, Mild, 04/22/23) Ceftriaxone (Verified Allergy, Unknown, 04/20/23) NSAIDs (Verified Allergy, Unknown, 04/19/23) Sulfa Antibiotics (Verified Allergy, Unknown, 04/19/23) Exam Vital Signs Vital Signs Date Time Temp Pulse Resp B/P (MAP) Pulse Ox O2 Delivery O2 Flow Rate FiO2 10/22/24 13:05 59 12 99 Nasal Cannula* 2 28 10/22/24 13:00 91/46 (61) 10/22/24 11:27 97.1 97.1 General Appearance: Other (Lethargic but arousable to painful stimuli) HEENT: Atraumatic, PERRLA, EOMI, Mucous membr. moist/pink Respiratory: Clear to auscultation, Normal air movement Cardiovascular: Regular rate, Normal S1, Normal S2, No murmurs Abdominal: Normal bowel sounds, Soft, No tenderness, No hepatospenomegaly, No masses Extremities: No clubbing, No cyanosis, No edema, No tenderness/swelling Skin: No rashes, No breakdown, No significant lesion Neuro: Other (When arouse patient was able to move all extremity equally) Labs/Xrays Chest x-ray completed shows multifocal pneumonia and fibrotic changes I reviewed labs, imaging CT scan abdomen pelvis, EKG and all diagnostic studies on this patient from ED records and the medical chart Labs Test 10/22/24 13:02 10/22/24 11:34 Range/Units Troponin I High Sensitivity < 3 L </=34 ng/L White Blood Count 5.9 4.4-10.8 10^3/uL Red Blood Count 3.14 L 4.0-5.20 10^6/uL Hemoglobin 9.7 L 12.2-16.2 g/dL Hematocrit 29.3 L 36.0-46.0 % Mean Corpuscular Volume 93.3 80.0-100.0 fL Mean Corpuscular Hemoglobin 30.8 28.0-32.0 pg Mean Corpuscular Hemoglobin Concent 33.0 32.0-36.0 g/dL Red Cell Distribution Width 16.5 H 11.8-14.3 % Platelet Count 166 140-450 10^3/uL Mean Platelet Volume 7.6 6.9-10.8 fL Neutrophils (%) (Auto) 41.1 37.0-80.0 % Lymphocytes (%) (Auto) 43.5 10.0-50.0 % Monocytes (%) (Auto) 10.3 0.0-12.0 % Eosinophils (%) (Auto) 4.6 0.0-7.0 % Basophils (%) (Auto) 0.5 0.0-2.0 % Neutrophils # (Auto) 2.4 1.6-8.6 10 ^3/uL Lymphocytes # (Auto) 2.6 0.4-5.4 10 ^3/uL Monocytes # (Auto) 0.6 0-1.3 10 ^3/uL Eosinophils # (Auto) 0.3 0-0.8 10 ^3/uL Basophils # (Auto) 0 0-0.2 10 ^3/uL Nucleated Red Blood Cells 0.0 % Sodium Level 143 136-145 mmol/L Potassium Level 3.5 3.5-5.1 mmol/L Chloride Level 111 H 98-107 mmol/L Carbon Dioxide Level 24 20-31 mmol/L Anion Gap 8 5-15 Blood Urea Nitrogen 25 H 9-23 mg/dL Creatinine 1.42 H 0.550-1.02 mg/dL Glomerular Filtration Rate Calc 44 >90 mL/min BUN/Creatinine Ratio 17.6 10.0-20.0 Serum Glucose 83 74-106 mg/dL Lactic Acid Level 1.2 0.4-2.0 mmol/L Calcium Level 8.6 L 8.7-10.4 mg/dL Assessment/Plan Assessment/Plan acute septic shock likely from pna found on cxr cont ivf ordered vanco and zosyn pt had before per pharmacy fu blood culture and urine and sputum culture consider levophed keep SBP greater than 90 mmHg consider ABG if with hypoxia fu lactic first was 1.2 sepsis protocol for now started in er Hold antidiabetic meds cont to treat infection acute encephalopathy ordered ct scan brain fu results cont antibiotics for now ordered tsh and urine drug screen and etoh level fu results hold medication lexapro, gabapentin, and robaxin for now ordered ua fu results cxr shows pna cont antibiotics for now Acute hypotension likely from infection pt recieved ivf bolus bp improved slightly Hold any home blood pressure meds if pt have ordered ivf IV fluids monitor for downtrend If downtrend can start levophed acute community acquired bilateral lung pna found on cxr ordered vanco and cefepime for now acute anemia blood loss vs chronic disease for now ordered occult blood in stool fu hemoglobin in am if downtrend provide transfusion acute abd pain ordered ct scan abd pelvis fu results cont vanco and zosyn for now fen/ppx npo for now until more alert scd protonix ivf lovenox plan admit to tele pt with authorization for admission Plan discussed with: Patient Date of Service: Oct 22, 2024 Billing Provider: TAYLOR MOSER DNP Common Visit Codes: [id number] INP/OBS CARE (HIGH), [id number] CARE 30- 74 MIN (Total critical care time: Approximately 45 minutes This critical care time included obtaining a history; examining the patient; pulse oximetry; ordering and review of studies; arranging urgent treatment with development of a management plan; evaluation of patient's response to treatment; frequent reassessment; and, discussions with other providers.) TAYLOR MOSER DNP Oct 22, 2024 14:57
[2024-10-22] MEDS: VANCOMYCIN 1GM/200ML PM 200 ML IV ONE (15:09)
[2024-10-22] MEDS ORDERED: VANCOMYCIN PER PHARMACY 0 MG IV SCH (16:00)
[2024-10-22] MEDS ORDERED: ONDANSETRON HCL 4 MG/2 ML VIAL IV PRN (16:00)
[2024-10-22] MEDS ORDERED: DOCUSATE SOD 100 MG CAP PO PRN (16:00)
[2024-10-22] MEDS ORDERED: NITROGLYCERIN 0.4 MG SL TAB SL PRN (16:00)
[2024-10-22] MEDS: SODIUM CHLORIDE 0.9% 1,000 ML IV SCH (16:30)
--- NOTE | 2024-10-22 17:11 | DVH ---
Procedure: CT HEAD WITHOUT CONTRAST Study Date and Requested Time: 10/22/2024 04:41 PM History: syncope and ams Comparison: CT HEAD WITHOUT CONTRAST on DOS: 04/19/23, HEAD WITHOUT CONTRAST on DOS: 02/27/20 Dose: CTDI: 50.79 mGy DLP: 814.3 mGycm Technique: Multiplanar images obtained through the brain without intravenous contrast. Findings: Htux-sm-vtrwxzvm diffuse brain Atrophy. Mild chronic small vessel ischemic changes. Bilateral basal g anglia physiologic calcification. Nonspecific focus of calcification over the left posterior mesial u pper lobe with additional nonspecific Focus of calcification of the right lateral posterior temporal lobe. No hemorrhages, masses, mass effect, midline shift, herniation or cytotoxic edema following a large v ascular territory. No intra-axial or extra-axial fluid collections. No evidence of hydrocephalus. The basal cisterns are patent. Nonspecific Partially Empty sella. The cerebellar tonsils are in normal position. The cerebellum is u nremarkable. The orbits and globes are unremarkable. The paranasal sinuses and mastoids are clear. There are no wo rrisome calvarial lesions. Impression: No evidence of acute intracranial abnormality.
[2024-10-22] MEDS: PANTOPRAZOLE 40 MG/10 ML VIAL INJ IV ONE (17:17)
[2024-10-22] MEDS: PIPERACILLIN-TAZOB 3.375GM 100 ML IV SCH (18:11)
--- NOTE | 2024-10-22 19:20 | DVH ---
Exam: CT CT AB PEL WO CON-NO ORAL OR IV History: acute abd pain Comparison Study: CT CT AB PEL WO CON-NO ORAL OR IV on DOS: 04/19/23 TECHNIQUE: Multidetector CT of the abdomen and pelvis without IV contrast. Axial, coronal and sagitta l multiplanar reformats were obtained from the axial data set by the technologist. Radiation Dose Information: CT Dose: CTDI volume is 14.02 mGy. Dose-length product is 710.27 mGy*cm FINDINGS: Ground-glass opacities of bilateral lung with Bilateral lower lobe and lingula consolidation. Borderl ine cardiomegaly. Mild hepatomegaly. Otherwise, liver, spleen, gallbladder, pancreas and adrenal glands are unremarkab le. Mild bilateral hydronephrosis with no obstructing calculus noted. There is significant distention of the urinary bladder up to the level of the upper vertebral body of L4 with mass effect on the posteri or urinary bladder from the colon. Uterus is not definitely visualized. Question hysterectomy. Small amount of fluid within the distal esophagus. Postsurgical changes of gastric bypass. Mild wall thickening of small bowel segments within the left midabdomen. The remainder of the small bowel loop s are fluid-filled and nondistended. Appendix is not definitely visualized. Without visualization of the appendix, can not exclude acute appendicitis. Mild wall thickening of the ascending colon. Moder ate to large amount of fecal material within the colon. No evidence of intraperitoneal free air or free fluid. No evidence of aortic aneurysm. Mild atherosclerotic calcification of the aorta and bilateral iliacs . No significant lymphadenopathy. Surgical clips are noted over the left ventral lower abdomen abutting the musculature. Soft tissues o therwise unremarkable. Compression fracture of L1 status post vertebroplasty. Diffuse demineralizati on. IMPRESSION: Mild wall thickening of small bowel segment within the left hemiabdomen which may be due to inadequat e distention/enteritis. Mild wall thickening of the ascending colon. Correlate for mild colitis. Mild bilateral hydro nephrosis with nonobstructing calculus noted. Significant distention of the urinary bladder up to the level of the upper vertebral body of L4. If patient can not void, consider ayala catheter placement. Constipation. Bibasilar ground-glass opacities with bilateral lower lobe and lingular consolidations which may repr esent pulmonary edema with superimposed pneumonia.
[2024-10-22 19:35] VITALS: O2SAT 99
[2024-10-22] MEDS ORDERED: CEFEPIME 2GM/50ML 50 ML IV SCH (22:00)
[2024-10-22 22:50] VITALS: BP 121/57; PULSE 53; RESP 15; TEMP 97.7; O2SAT 98
[2024-10-22 23:16] VITALS: PULSE 55; RESP 15; O2SAT 98
[2024-10-23 01:00] VITALS: BP 117/56; PULSE 58; RESP 15; TEMP 97.4; O2SAT 97
[2024-10-23 05:00] VITALS: BP 135/65; PULSE 61; RESP 15; TEMP 97.5; O2SAT 94
[2024-10-23 07:20] LABS: Basophils # (auto) 0 10 ^3/uL (0-0.2); Basophils % (auto) 0.4 % (0.0-2.0); Eosinophils # (auto) 0.2 10 ^3/uL (0-0.8); Eosinophils % (auto) 3.9 % (0.0-7.0); Hematocrit 35.8 % (36.0-46.0); Hemoglobin 11.7 g/dL (12.2-16.2); Lymphocytes # (auto) 1.1 10 ^3/uL (0.4-5.4); Lymphocytes % (auto) 17.7 % (10.0-50.0); Mean Corpuscular Hemoglobin 30.8 pg (28.0-32.0); Mean Corpuscular Hgb Conc. 32.8 g/dL (32.0-36.0); Mean Corpuscular Volume 93.8 fL (80.0-100.0); Monocytes # (auto) 0.5 10 ^3/uL (0-1.3); Monocytes % (auto) 7.9 % (0.0-12.0); Neutrophils # (auto) 4.2 10 ^3/uL (1.6-8.6); Neutrophils % (auto) 70.1 % (37.0-80.0); Platelet Count (auto) 182 10^3/uL (140-450); Red Blood Cells 3.82 10^6/uL (4.0-5.20); Red Cell Distribution Width 16.6 % (11.8-14.3)
[2024-10-23 08:00] VITALS: PULSE 64; PULSE 67; RESP 18; O2SAT 95
[2024-10-23 08:05] LABS: Albumin 3.6 g/dL (3.2-4.8); Alkaline Phosphatase 96 U/L (46-116); Anion Gap 5 (5-15); Aspartate Aminotransferase 15 U/L (<34); BUN/Creatinine Ratio 18.2 (10.0-20.0); Blood Urea Nitrogen 14 mg/dL (9-23); Calcium 9.7 mg/dL (8.7-10.4); Carbon Dioxide 26 mmol/L (20-31); Glucose 86 mg/dL (74-106); Potassium 4.1 mmol/L (3.5-5.1); Total Protein 5.9 g/dL (5.7-8.2)
[2024-10-23 08:06] LABS: Bilirubin, Total 0.3 mg/dL (0.2-1.0)
[2024-10-23 08:15] LABS: Alanine Aminotransferase 9 U/L (7-40); Chloride 115 mmol/L (98-107); Sodium 146 mmol/L (136-145)
[2024-10-23] MEDS ORDERED: PANTOPRAZOLE 40 MG/10 ML VIAL INJ IV SCH (10:00)
== END 2024-10-23 08:05 | disposition left against medical advice (07) | DRG 871 ==
LOC: EDBD 11:08 → ER 11:11 → OVERFLOW 15:52 → TELE-WESTW 22:43
PROVIDERS: ADMIT Internal Medicine; ATTEND Internal Medicine
DX: A41.9 Sepsis, unspecified organism (principal); J18.9 Pneumonia, unspecified organism; R65.21 Severe sepsis with septic shock; G93.40 Encephalopathy, unspecified; D62 Acute posthemorrhagic anemia; Z53.29 Procedure and treatment not carried out because of patient's decision for other reasons; Z88.1 Allergy status to other antibiotic agents; Z88.2 Allergy status to sulfonamides; Z88.8 Allergy status to other drugs, medicaments and biological substances; Z79.899 Other long term (current) drug therapy; Z90.710 Acquired absence of both cervix and uterus; Z98.891 History of uterine scar from previous surgery; Z98.51 Tubal ligation status; Z88.3 Allergy status to other anti-infective agents
CPT/HCPCS: 36415; 70450; 71045; 74176; 80048; 80053; 80202; 80320; 83605; 84484; 85025; 87040; 93005; 96365; 99291; G0378; J1956; J2470; J2543